=== PATIENT | male | born 1935 | race Caucasian/White ===

== ENCOUNTER → 2023-05-07 | Outpatient (REF) | payer MEDICARE ==
[2023-05-07 17:52] LABS: PROSTATIC SPECIFIC AG MONITOR 30.53 NG/ML (< 4.00)
[2023-05-07 17:57] LABS: TESTOSTERONE < 7 NG/DL (241-827)
== END ==
LOC: M SFHCCLAY 11:17
PROVIDERS: ATTEND Urology
DX: C61 Malignant neoplasm of prostate (principal); C79.51 Secondary malignant neoplasm of bone; C77.9 Secondary and unspecified malignant neoplasm of lymph node, unspecified; N13.5 Crossing vessel and stricture of ureter without hydronephrosis; Z79.818 Long term (current) use of other agents affecting estrogen receptors and estrogen levels; Z88.5 Allergy status to narcotic agent

== ENCOUNTER → 2023-06-23 | Outpatient (REF) | payer MEDICARE | LOC: M SFHCCLAY 09:11 | PROVIDERS: ATTEND Urology | DX: C61 Malignant neoplasm of prostate (principal) ==

== ENCOUNTER → 2024-04-22 | Outpatient (REF) | payer MEDICARE | LOC: M SFHCCLAY 08:53 | PROVIDERS: ATTEND Urology | DX: C61 Malignant neoplasm of prostate (principal) ==